=== PATIENT | female | born 1985 | race African-American/Black ===

== ENCOUNTER 2016-04-05 09:48 | Inpatient (IN) | payer BC, OTHER ==
[2016-04-05] VITALS (18 sets, daily range): BP systolic 110–131; BP diastolic 45–78; PULSE 59–77; TEMP 97.5–98
[~2016-04-05] VITALS: Ht 160.1 cm; Wt 95.0 kg
[~2016-04-05 09:48] MED LIST: FOLIC ACID0.4 MG PO; MOTRIN 600600 MG/TAB PO; PERCOCET 325 MG1 TA2 PO; PRENATAL MVI; PRENATAL1 TA1 PO; Senokot-S PO; TYLENOL 500MG500 MG PO
[2016-04-05 10:11] LABS: BASO % 0.3 % (0.0-2.0); EOS # 0.3 (0.0-0.7); GRAN # 5.7 (1.4-6.5); GRAN % 65.4 % (42.2-75.2); HEMOGLOBIN 12.2 g/dl (12.5-16.0); LYMPH % 23.4 % (20.0-51.0); MEAN CELL VOLUME 88 fl (80.0-100.0); MEAN CORPUSCULAR HEMOGLOBIN 30 pg (27.0-31.0); MEAN CORPUSCULAR HGB CONC 35 g/dl (33.0-37.0); MEAN PLATELET VOLUME 10.8 fl (7.4-10.4); MONO # 0.6 (0.1-0.6); MONO % 7.2 % (1.7-9.3); PLATELET COUNT 170 K/mm3 (130-400); RED BLOOD COUNT 4.02 M/mm3 (4.10-5.30); WHITE BLOOD COUNT 8.7 K/mm3 (4.8-10.8)
[2016-04-05 10:15] LABS: HEMATOCRIT 35.3 % (37.0-47.0)
[2016-04-06 00:20] VITALS: BP 117/59; PULSE 68; TEMP 97.9
[2016-04-06 03:54] VITALS: BP 110/51; PULSE 71; TEMP 97.9
[2016-04-06 07:28] LABS: BASO % 0.3 % (0.0-2.0); EOS # 0.2 (0.0-0.7); GRAN # 6.3 (1.4-6.5); GRAN % 70.7 % (42.2-75.2); LYMPH # 1.6 (1.2-3.4); LYMPH % 18.4 % (20.0-51.0); MEAN CELL VOLUME 90 fl (80.0-100.0); MEAN CORPUSCULAR HGB CONC 34 g/dl (33.0-37.0); MEAN PLATELET VOLUME 10.6 fl (7.4-10.4); MONO # 0.7 (0.1-0.6); PLATELET COUNT 132 K/mm3 (130-400); RED BLOOD COUNT 3.44 M/mm3 (4.10-5.30); REDCELL DISTRIBUTION WIDTH-CV 14.3 % (11.5-14.5); WHITE BLOOD COUNT 8.9 K/mm3 (4.8-10.8)
[2016-04-06 07:29] LABS: HEMATOCRIT 30.8 % (37.0-47.0); HEMOGLOBIN 10.4 g/dl (12.5-16.0); MEAN CORPUSCULAR HEMOGLOBIN 30 pg (27.0-31.0)
[2016-04-06 07:53] VITALS: BP 113/62; PULSE 75; TEMP 97.9
[2016-04-06] MEDS ORDERED: MOTRIN 600600 MG/TAB PO (08:29)
[2016-04-06] MEDS ORDERED: PERCOCET 325 MG1 TA2 PO (08:30)
[2016-04-06 17:32] VITALS: BP 99/80; PULSE 112; TEMP 98.3
[2016-04-06 21:00] VITALS: BP 121/61; PULSE 80; TEMP 98.6
[2016-04-07 10:40] VITALS: BP 127/67; PULSE 75; TEMP 97.6
[2016-04-07 15:22] VITALS: BP 123/67; PULSE 66; TEMP 98.9
[2016-04-07 21:00] VITALS: BP 129/56; PULSE 73; TEMP 97.8
[2016-04-08 07:08] VITALS: BP 117/60; PULSE 62; TEMP 97.8
== END 2016-04-08 13:40 | disposition home or self-care (01) | DRG 765 ==
LOC: OB 09:48
PROVIDERS: Obstetrics & Gynecology
PROC: 10D00Z1 Extraction of Products of Conception, Low, Open Approach (ICD-10-PCS; principal; 2016-04-05)
PROC: 0HB7XZZ Excision of Abdomen Skin, External Approach (ICD-10-PCS; 2016-04-05)
DX: O34.211 Maternal care for low transverse scar from previous cesarean delivery (principal); O36.0130 Maternal care for anti-D [Rh] antibodies, third trimester, not applicable or unspecified; N85.8 Other specified noninflammatory disorders of uterus; O69.81X0 Labor and delivery complicated by cord around neck, without compression, not applicable or unspecified; O99.72 Diseases of the skin and subcutaneous tissue complicating childbirth; L91.0 Hypertrophic scar; Z3A.39 39 weeks gestation of pregnancy; Z37.0 Single live birth
CPT/HCPCS: J0690; J1885; J2175; J2270; J2370; J2405; J2590; J2790; J7120

== ENCOUNTER 2016-05-07 15:49 | Emergency (ER) | payer BC, OTHER ==
[~2016-05-07] VITALS: Ht 170.2 cm; Wt 86.4 kg
[2016-05-07 18:29] LABS: INFLUENZA B NEGATIVE
[2016-05-07 19:12] VITALS: BP 108/60; PULSE 89; TEMP 100.4
[2016-05-07] MEDS ORDERED: ZITHROMAX 250M250 MG PO (19:43)
== END 2016-05-07 20:17 | disposition home or self-care (01) ==
LOC: COL.ER 15:49
PROVIDERS: Nurse Practitioner
DX: J18.9 Pneumonia, unspecified organism (principal)

== ENCOUNTER 2017-04-06 11:48 | Emergency (ER) | payer OTHER ==
[~2017-04-06] VITALS: Ht 160 cm; Wt 84.1 kg
[~2017-04-06 11:48] MED LIST changes: +ZITHROMAX 250M250 MG PO
[2017-04-06 12:02] VITALS: BP 132/64; PULSE 66; TEMP 98.1
[2017-04-06] MEDS ORDERED: FOLIC ACID 11 MG/TA1 PO (12:05)
[2017-04-06] MEDS ORDERED: FLEXERIL5 MG PO (13:21)
== END 2017-04-06 13:32 | disposition home or self-care (01) ==
LOC: COL.ER 11:48
DX: S16.1XXA Strain of muscle, fascia and tendon at neck level, initial encounter (principal); S13.4XXA Sprain of ligaments of cervical spine, initial encounter; M62.838 Other muscle spasm; V47.6XXA Car passenger injured in collision with fixed or stationary object in traffic accident, initial encounter; Y92.410 Unspecified street and highway as the place of occurrence of the external cause

== ENCOUNTER 2017-06-20 12:31 | Emergency (ER) | payer OTHER ==
[~2017-06-20] VITALS: Ht 312.4 cm; Wt 89.0 kg
[~2017-06-20 12:31] MED LIST changes: +FLEXERIL5 MG PO; +FOLIC ACID 11 MG/TA1 PO
[2017-06-20 12:36] VITALS: BP 128/66
[2017-06-20 12:50] LABS: COLLECTION METHOD CLEAN CATCH
[2017-06-20 12:59] LABS: PH 8 (5-8); URINE APPEARANCE Hazy; URINE BACTERIA Rare /hpf; URINE BILIRUBIN Negative (NEGATIVE); URINE BLOOD 3+ (NEGATIVE); URINE COLOR Yellow; URINE GLUCOSE Negative (NEGATIVE); URINE KETONE Negative (NEGATIVE); URINE LEUKOCYTE ESTERASE 2+ (NEGATIVE); URINE NITRATE Negative (NEGATIVE); URINE PROTEIN(semi-quant) 2+ (NEGATIVE); URINE RBC >50 /hpf; URINE UROBILINOGEN Negative (NEGATIVE)
[2017-06-20 14:43] VITALS: TEMP 99.1
[2017-06-20] MEDS ORDERED: CEFTIN500 MG PO (15:31)
[2017-06-20] MEDS ORDERED: PYRIDIUM 100MG100 MG PO (15:31)
[2017-06-20 15:38] VITALS: PULSE 78
== END 2017-06-20 15:39 | disposition home or self-care (01) ==
LOC: COL.ER 12:31
PROVIDERS: Emergency Medicine
DX: N39.0 Urinary tract infection, site not specified (principal)

== ENCOUNTER → 2017-06-27 | Outpatient (CLI) | payer OTHER ==
[~2017-06-27] MED LIST changes: +CEFTIN500 MG PO; +PYRIDIUM 100MG100 MG PO
[2017-06-27 15:51] LABS: BASO % 0.4 % (0.0-2.0); EOS # 0.2 (0.0-0.7); EOS % 2.2 % (0-4.0); GRAN # 3.2 (1.4-6.5); GRAN % 42.7 % (42.2-75.2); LYMPH # 3.6 (1.2-3.4); LYMPH % 47.8 % (20.0-51.0); MEAN CELL VOLUME 86 fl (80.0-100.0); MEAN CORPUSCULAR HEMOGLOBIN 29 pg (27.0-31.0); MEAN CORPUSCULAR HGB CONC 34 g/dl (33.0-37.0); MEAN PLATELET VOLUME 12.6 fl (7.4-10.4); MONO # 0.5 (0.1-0.6); MONO % 6.1 % (1.7-9.3); PLATELET COUNT 209 K/mm3 (130-400); RED BLOOD COUNT 4.17 M/mm3 (4.10-5.30)
[2017-06-27 15:56] LABS: ALBUMIN 4.4 gm/dL (3.5-5.0); BILIRUBIN,TOTAL 0.4 mg/dL (0.0-1.0); CALCIUM 9.6 mg/dL (8.4-10.2); CHOLESTEROL RISK RATIO 3.6; CREATININE, serum 0.65 mg/dL (0.52-1.25); POTASSIUM 4.3 mmol/L (3.4-5.0); TOTAL PROTEIN 8.6 gm/dL (6.4-8.2)
[2017-06-27 15:58] LABS: HEMATOCRIT 35.7 % (37.0-47.0)
[2017-06-27 16:27] LABS: TSH w REFLEX 0.71 uIU/mL (0.465-4.680)
== END ==
LOC: COL.LAB 14:25
PROVIDERS: Family Medicine
DX: Z00.00 Encounter for general adult medical examination without abnormal findings (principal); Z13.220 Encounter for screening for lipoid disorders; Z13.29 Encounter for screening for other suspected endocrine disorder

== ENCOUNTER → 2017-07-13 | Outpatient (CLI) | payer OTHER | LOC: COL.LAB 11:44 | DX: N39.0 Urinary tract infection, site not specified (principal) ==

== ENCOUNTER 2018-07-08 17:03 | Emergency (ER) | payer BC ==
[~2018-07-08] VITALS: Ht 160 cm; Wt 87.6 kg
[2018-07-08 17:18] VITALS: BP 127/86; TEMP 98.5
[2018-07-08] MEDS ORDERED: NATURE'S BLE1000 MCG PO (17:23)
[2018-07-08 19:58] VITALS: PULSE 80
== END 2018-07-08 19:59 | disposition home or self-care (01) ==
LOC: COL.ER 17:03
DX: J06.9 Acute upper respiratory infection, unspecified (principal)

== ENCOUNTER 2020-01-04 05:45 | Inpatient (IN) | payer BC ==
[~2020-01-04] VITALS: Ht 160 cm; Wt 96.8 kg
[2020-01-04] VITALS (19 sets, daily range): BP systolic 108–154; BP diastolic 55–81; PULSE 60–81; TEMP 97.6–98.1
[~2020-01-04 05:45] MED LIST changes: +NATURE'S BLE1000 MCG PO
[2020-01-04] MEDS ORDERED: PRENATAL (06:34)
[2020-01-04 07:03] LABS: BASO % 0.4 % (0.0-2.0); EOS # 0.1 (0.0-0.7); EOS % 1.3 % (0-4.0); GRAN # 6.3 (1.4-6.5); GRAN % 66.8 % (42.2-75.2); HEMATOCRIT 39.3 % (37.0-47.0); HEMOGLOBIN 13.6 g/dl (12.5-16.0); LYMPH # 2.1 (1.2-3.4); LYMPH % 22.7 % (20.0-51.0); MEAN CELL VOLUME 92 fl (80.0-100.0); MEAN CORPUSCULAR HEMOGLOBIN 32 pg (27.0-31.0); MEAN CORPUSCULAR HGB CONC 35 g/dl (33.0-37.0); MEAN PLATELET VOLUME 11.7 fl (7.4-10.4); MONO # 0.8 (0.1-0.6); MONO % 8.2 % (1.7-9.3); PLATELET COUNT 166 K/mm3 (130-400); RED BLOOD COUNT 4.27 M/mm3 (4.10-5.30); REDCELL DISTRIBUTION WIDTH-CV 13.6 % (11.5-14.5)
--- NOTE | 2020-01-04 15:30 | NUR ---
PATIENT STATES SHE IS IN PAIN FUNDAL MASSAGE PROVIDED. PATIENT REFUSED TO GET OUT OF BED TO REPOSTION
[2020-01-05 01:45] VITALS: BP 141/68; PULSE 69; TEMP 97.7
[2020-01-05 05:10] VITALS: BP 129/66; PULSE 57
[2020-01-05 08:00] VITALS: BP 115/66; PULSE 77; TEMP 97.2
--- NOTE | 2020-01-05 08:00 | NUR ---
PATIENT REFUSED TO GET OUT OF BED TO USE RESTROOM. EDUCATION PROVIDED
--- NOTE | 2020-01-05 09:47 | NUR ---
PATIENT AMBULATING TO RESTROOM AND ABOUT ROOM AT THIS TIME WHILE GETS HEARING SCREEN TEST PREFORMED
[2020-01-05 12:00] VITALS: BP 142/68; PULSE 88; TEMP 97.9
[2020-01-05 16:23] VITALS: BP 142/50; PULSE 77; TEMP 98
[2020-01-05 19:31] VITALS: BP 147/64; PULSE 68; TEMP 98.3
[2020-01-06 07:55] VITALS: BP 145/83; PULSE 83; TEMP 98.9
[2020-01-06 09:05] VITALS: BP 137/71; PULSE 75
--- NOTE | 2020-01-06 10:45 | NUR ---
1045: Patient ambulatory in hallway after shower, then into nursery to get after his hearing screen. Patient reports feeling dizzy/shaky. Patient into rocking chair. Juice provided. on unit, notified. 1100: Patient returned to room via wheelchair. Crackers provided. Patient states she feels much better. Encouraged to rest.
[2020-01-06] MEDS ORDERED: PERCOCET 325 MG1 TA2 PO (11:11)
[2020-01-06] MEDS ORDERED: MOTRIN 800800 MG/TAB PO (11:11)
[2020-01-06 16:20] VITALS: BP 119/47; BP 130/49; PULSE 72; PULSE 77; TEMP 97.4
--- NOTE | 2020-01-06 18:30 | NUR ---
Report recieved. Ambulating in room. POC reviewed. Whiteboard updated. Questions invited and answered.
[2020-01-06 20:30] VITALS: BP 131/7; BP 131/72; PULSE 70; TEMP 97.8
--- NOTE | 2020-01-07 09:11 | NUR ---
Initial visit attempt; Family resting, Flake Cutter Operator left card of congratulations and God's blessings for the of their son along with information regarding the availability of spiritual care at [facility].
[2020-01-07 09:50] VITALS: BP 129/49; PULSE 73; TEMP 98.7
[2020-01-07 17:00] VITALS: BP 135/53; PULSE 68; TEMP 97.6
== END 2020-01-07 18:45 | disposition home or self-care (01) | DRG 788 ==
LOC: OB 05:45
PROVIDERS: ADMIT Obstetrics & Gynecology
PROC: 10D00Z1 Extraction of Products of Conception, Low, Open Approach (ICD-10-PCS; principal; 2020-01-04)
DX: O34.211 Maternal care for low transverse scar from previous cesarean delivery (principal); Z37.0 Single live birth; O99.02 Anemia complicating childbirth; D64.9 Anemia, unspecified; O69.81X0 Labor and delivery complicated by cord around neck, without compression, not applicable or unspecified; O99.214 Obesity complicating childbirth; E66.9 Obesity, unspecified; Z3A.39 39 weeks gestation of pregnancy
CPT/HCPCS: J0690; J1885; J2370; J2405; J2590; J2791; J7120

== ENCOUNTER 2023-04-14 18:56 | Emergency (ER) | payer SELFPAY ==
[~2023-04-14] VITALS: Ht 160 cm; Wt 80.0 kg
[~2023-04-14 18:56] MED LIST changes: +MOTRIN 800800 MG/TAB PO; +PRENATAL
[2023-04-14 19:05] VITALS: TEMP 98
[2023-04-14] MEDS ORDERED: Morphine 4 MG/ML VIAL IV ONE (19:45)
[2023-04-14 20:25] LABS: BASO % 0.4 % (0.0-2.0); EOS # 0.3 K/mm3 (0.0-0.7); EOS % 3.7 % (0.0-4.0); GRAN # 2.8 K/mm3 (1.4-6.5); GRAN % 41.2 % (42.2-75.2); HEMOGLOBIN 10.4 g/dl (12.5-16.0); LYMPH # 3.2 K/mm3 (1.2-3.4); LYMPH % 47.3 % (20.0-51.0); MEAN CELL VOLUME 78 fl (80.0-100.0); MEAN CORPUSCULAR HEMOGLOBIN 24 pg (27-31); MEAN CORPUSCULAR HGB CONC 31 g/dl (33.0-37.0); MONO # 0.5 K/mm3 (0.1-0.6); MONO % 7.3 % (1.7-9.3); PLATELET COUNT 320 K/mm3 (130-400); RED BLOOD COUNT 4.35 M/mm3 (4.10-5.30); REDCELL DISTRIBUTION WIDTH-CV 17.6 % (11.5-14.5)
[2023-04-14 20:27] LABS: HEMATOCRIT 34.1 % (37.0-47.0)
[2023-04-14 20:45] LABS: BILIRUBIN,TOTAL 0.3 mg/dL (0.2-1.2); CALCIUM 9.2 mg/dL (8.4-10.2); CREATININE, serum 1.03 mg/dL (0.57-1.11); POTASSIUM 3.7 mmol/L (3.5-4.5)
[2023-04-14] MEDS ORDERED: NS 64 ML IV SCH (21:59)
[2023-04-14] MEDS ORDERED: Iohexol 300 - 100 ML VIAL IV ONE (21:59)
[2023-04-14] MEDS ORDERED: Home HYDROcodone/Acetaminophen 5/325 MG #4 TABS/PACK PO ONE (23:15)
[2023-04-14 23:38] VITALS: BP 137/63; PULSE 83
== END 2023-04-14 23:38 | disposition home or self-care (01) ==
LOC: COL.ER 18:56
PROVIDERS: Nurse Practitioner
DX: S16.1XXA Strain of muscle, fascia and tendon at neck level, initial encounter (principal); S39.012A Strain of muscle, fascia and tendon of lower back, initial encounter; S33.5XXA Sprain of ligaments of lumbar spine, initial encounter; S20.219A Contusion of unspecified front wall of thorax, initial encounter; V89.2XXA Person injured in unspecified motor-vehicle accident, traffic, initial encounter; Y92.410 Unspecified street and highway as the place of occurrence of the external cause
CPT/HCPCS: J2270; Q9967